=== PATIENT | male | born 1960 | race Caucasian/White ===

== ENCOUNTER 2018-07-02 10:27 | Observation (INO) | payer SELFPAY ==
--- NOTE | 2018-07-02 10:56 | ED ---
Complex/Multi-Sys Presentation - HPI Summary HPI Summary: This patient is a 58 year old M presenting to [facility] with a chief complaint of bouts of dizziness and confusion and frequent urination for the past year with recent fever. Patient suspects his symptoms are due to elevated glucose levels. Reports PMHx of NIDDM that is typically controlled with metformin. However, patient admits to drinking alcohol and a worsening diet while he is visiting the area from [place]. Patient additionally reports chronic health issues including a previous urethra surgery, kidney infections, and lower extremity swelling, and HTN. - History Of Current Complaint Chief Complaint: EDGeneral Time Seen by Provider: 07/02/18 10:46 Hx Obtained From: Patient Onset/Duration: Gradual Onset, Still Present, Worse Since - past few days Timing: Constant Location: Negative Aggravating Factor(s): alcohol, diet change Associated Signs And Symptoms: Positive: Confusion, Dizziness, Dysuria, Fever - Allergies/Home Medications Allergies/Adverse Reactions: Allergies Allergy/AdvReac Type Severity Reaction Status Date / Time No Known Allergies Allergy Verified 07/02/18 10:36 Home Medications: Home Medications Amlodipine Besylate 10 mg PO DAILY 07/02/18 [History Confirmed 07/02/18] Aspirin 81 mg PO DAILY 07/02/18 [History Confirmed 07/02/18] Carvedilol 12.5 mg PO DAILY 07/02/18 [History Confirmed 07/02/18] Doxazosin Mesylate 8 mg PO DAILY 07/02/18 [History Confirmed 07/02/18] Lisinopril 10 mg PO DAILY 07/02/18 [History Confirmed 07/02/18] Metformin HCl 500 mg PO DAILY 07/02/18 [History Confirmed 07/02/18] PMH/Surg Hx/FS Hx/Imm Hx Endocrine/Hematology History: Reports: Hx Diabetes Cardiovascular History: Reports: Hx Hypertension History: Reports: Hx Kidney Infection - Surgical History Surgery Procedure, Year, and Place: "urethra surgery" per patient Infectious Disease History: No Infectious Disease History: Denies: Traveled Outside the [place] in Last 30 Days - Family History Known Family History: Positive: Hypertension - Social History Lives: Alone Alcohol Use: Rare Review of Systems Positive: Fever, Other - dizziness/confusion Positive: frequency All Other Systems Reviewed And Are Negative: Yes Physical Exam - Summary Physical Exam Summary: Appearance: Well-nourished, lying in bed comfortably Skin: Warm, dry, no obvious rash Eyes: sclera anicteric, no conjunctival pallor ENT: mucous membranes moist, pharynx appears normal Neck: Supple, nontender Respiratory: Clear to auscultation, no signs of respiratory distress Cardiovascular: Tachycardic. Normal S1, S2. No murmurs. Normal distal pulses in tibial and radial bilaterally. Abdomen: Soft, nontender, normal active bowel sounds present Musculoskeletal: Strength/ROM Intact, mild pitting edema bilaterally Neurological: A&Ox3, awake and alert, mentation is normal, speech is fluent and appropriate Psychiatric: affect is normal, does not appear anxious or depressed Triage Information Reviewed: Yes Vital Signs On Initial Exam: Initial Vitals Temp Pulse Resp BP Pulse Ox 99.0 F 101 16 123/70 97 07/02/18 10:32 07/02/18 10:32 07/02/18 10:32 07/02/18 10:32 07/02/18 10:32 Vital Signs Reviewed: Yes Diagnostics - Vital Signs Vital Signs Temp Pulse Resp BP Pulse Ox 07/02/18 10:32 99.0 F 101 16 123/70 97 - Laboratory Result Diagrams: 07/02/18 11:03 07/02/18 11:03 Lab Statement: Any lab studies that have been ordered have been reviewed, and results considered in the medical decision making process. - EKG 1128 Cardiac Rate: NL - 94 BPM EKG Rhythm: Sinus Rhythm Summary of EKG Findings: Septal Q waves otherwise normal EKG. NSR at 94 BPM, P waves and T waves are within normal limits, T waves and intervals are normal, no ischemic changes. This is a normal EKG. Complex Multi-Symp Course/Dx Course Of Treatment: 58 year old M presenting to [facility] with a chief complaint of bouts of dizziness and confusion and frequent urination for the past year with recent fever. Upon examination patient is tachycardic with mild swelling of the bilateral lower extremities. Patient is given IV fluids. Bloodwork reveals lactic acid of 2.9. EKG reveals septal Q waves but is otherwise normal. Patient's regular mid day HTN medications are not taken as BP is 96/60. Patient took regularly scheduled metformin. At 12:47 nursing staff informed me of a temperature of 101F. UA indicative of UTI. At 12:54 case discussed with hospitalist Dr. Haddad, who agrees for admission. Results and plan discussed with patient who is agreeable with plan. - Diagnoses Provider Diagnoses: Sepsis, UTI (urinary tract infection) - Physician Notifications Discussed Care Of Patient With: Claudine Haddad - hospitalist Time Discussed With Above Provider: 12:54 Instructed by Provider To: Admit As Inpatient Discharge - Sign-Out/Discharge Documenting (check all that apply): Patient Departure - admit Patient Received Moderate/Deep Sedation with Procedure: No - Discharge Plan Condition: Stable Disposition: ADMITTED TO [facility] - Billing Disposition and Condition Condition: STABLE Disposition: Admitted to [facility] - Attestation Statements Document Initiated by Kee: Yes Documenting Scribe: Scarlet Pak Provider For Whom Scribe is Documenting (Include Credential): Srini Shepherd MD Scribe Attestation: Scarlet Sethi, scribed for Srini Shepherd MD on 07/02/18 at 1954. Scribe Documentation Reviewed: Yes Provider Attestation: The documentation as recorded by the Scarlet quintana accurately reflects the service I personally performed and the decisions made by Srini vieira MD Status of Scribe Document: Viewed
[2018-07-02] MEDS: NS 0.9% 1000 ML** 1,000 ML IV.FLUID IV ONE ×2 (11:10→12:09)
[2018-07-02 11:26] LABS: ABS Lymphocytes 0.2 10^3/ul (1.0-4.8); ABS Monocytes 0.2 10^3/ul (0-0.8); ABS Neutrophils 9.3 10^3/ul (1.5-7.7); Hematocrit 36 % (42-52); Hemoglobin 12.4 g/dL (14.0-18.0); Lymphocyte % 2.2 %; Mean Corpuscular HGB Conc 34 g/dL (31-36); Mean Corpuscular Hemoglobin 29 pg (27-31); Mean Corpuscular Volume 85 fL (80-94); Mean Platelet Volume 9.5 fL (7.4-10.4); Platelet Count 123 10^3/uL (150-450); Red Blood Count 4.25 10^6 /uL (4.18-5.48); Red Cell Distribution Width 14 % (10.5-15); White Blood Count 9.7 10^3/uL (3.5-10.8)
[2018-07-02 11:32] LABS: INR 1.15 (0.82-1.09)
[2018-07-02 11:38] LABS: Albumin 4.2 g/dL (3.2-5.2); Albumin/Globulin Ratio 1.6 (1-3); BUN/Creatinine Ratio 20.4 (8-20); Calcium 9.4 mg/dL (8.6-10.3); EGFR African American 94.7 (>60); EGFR Non-African American 78.3 (>60); Globulin 2.7 g/dL (2-4); Potassium 3.6 mmol/L (3.5-5.0); Total Protein 6.9 g/dL (6.4-8.9)
[2018-07-02 11:40] LABS: Troponin I 0.01 ng/mL (<0.04)
[2018-07-02 12:10] LABS: Urine Appearance Cloudy; Urine Bacteria Absent (Absent); Urine Bilirubin Negative (Negative); Urine Blood 1+ (Negative); Urine Color Amber; Urine Glucose Negative (Negative); Urine Ketones Negative (Negative); Urine Nitrite Negative (Negative); Urine Protein 1+(30 mg/dL) (Negative); Urine Red Blood Cell 2+(6-10/hpf) (Absent); Urine Specific Gravity 1.017 (1.010-1.030); Urine Squamous Epithelial Cell Present (Absent); Urine Urobilinogen Negative (Negative); Urine White Blood Cell 3+(>20/hpf) (Absent)
[2018-07-02] MEDS ORDERED: cefTRIAXone(*) 1 GM in NS 0.9% 50 ML* 50 ML IVPB ONE (12:47)
[2018-07-02] MEDS ORDERED: Acetaminophen TAB* 325 MG PO ONE (12:47)
[2018-07-02] MEDS ORDERED: Ondansetron INJ* 2 MG/ML VIAL IV PRN (13:42)
[2018-07-02] MEDS ORDERED: Ibuprofen TAB* 600 MG PO PRN (13:42)
[2018-07-02] MEDS ORDERED: Acetaminophen TAB* 325 MG PO PRN (13:42)
[2018-07-02] MEDS ORDERED: Ibuprofen TAB* 600 MG ONE (13:45)
[2018-07-02] MEDS: NS 0.9% 1000 ML** 1,000 ML IV SCH ×2 (15:31→23:21)
[2018-07-02] MEDS: Heparin VIAL(*) 5000 UNITS/ML VIAL (FIVE THOUSAND) SUBCUT SCH ×2 (15:32→20:39)
--- NOTE | 2018-07-02 16:14 | HP ---
HISTORY OF PRESENT ILLNESS: DATE OF ADMISSION: 07/02/18. PRIMARY CARE PROVIDER: None. CHIEF COMPLAINT: Dysuria. AIR TUCKER: Shawn Orr, the patient's son. CODES STATUS: Full. HPI is obtained from the patient, who is fair historian. 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 The patient is visiting his son from [place] who graduated about 1 week ago. He has been here for the last week and a half and reports the starting last night he has had worsening urgency, frequency and dysuria. The patient has a congenital anatomic deformity where apparently a urologist when he was a child created a non-urethral orifice from which this patient urinates, which per him is located directly behind the scrotum. Because of this anatomical anomaly patient has recurrent UTIs about 5 to 6 per year and has never been hospitalized for them in the past. The patient resides in [place] and because he is uninsured he currently does not have a urology specialist, although he reports that his primary care provider in [place] did get him an appointment with urologist, which is at the end of the upcoming week. The patient reports that usually with his UTIs he is able to take Tylenol and drinks lots of fluids "and rides it out," although this one he said seemed more severe this morning the patient woke up and had a fever at home to 102, had shaking chills, felt confused, and his son decided to bring him to the emergency room. In the ER vital signs were initially normal, but then patient quickly spiked a temperature to 102, had tachycardia to 95 sinus, sating 100% on room air, respiratory rate in the 20s. Labs were done, which did not show leukocytosis, but did show an elevated lactate to 2.9, creatinine stable at 0.98. A UA was done, which showed 1+ protein, 1+ blood, 3+ leuk esterase, 3+ white blood cell count, and squamous epithelial cells. The hospitalist team was asked to evaluate this patient secondary to meeting sepsis criteria. In the emergency room the patient received 3 L of normal saline as well as ceftriaxone 1 g. 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 PAST SURGICAL HISTORY: CABG in 2017 and a diverting urethral procedure done as a child with non-urethral orifice located behind the scrotum the patient urinates out of. MEDICATIONS: 1. Metformin 500 mg p.o. daily. 2. Lisinopril 10 mg p.o. daily. 3. Doxazosin 8 mg p.o. daily. 4. Carvedilol 12.5 mg p.o. daily. 5. Aspirin 81 mg p.o. daily. 6. Amlodipine 10 mg p.o. daily. ALLERGIES: No known drug allergies. 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 He has a 30-pack year smoking. He stopped 2 years ago. He takes 2 to 3 drinks per month and he has never illicits history. FAMILY HISTORY: His mother from heart disease. His father from colon cancer. REVIEW OF SYSTEMS: Constitutional: Positive for fevers, chills, negative for malaise. HEENT: Negative for vision changes, sore throat, headaches. Cardiovascular: Negative for chest pain, palpation, orthopnea. Respiratory: Negative for shortness of breath, cough, pleuritic chest pain. GI: Negative for nausea, vomiting, diarrhea, abdominal pain. : Positive for dysuria, hematuria, frequency, and urgency. Musculoskeletal: Negative for myalgias, arthralgias or weakness. Skin: Negative for new rashes or lesions. Neurologic : Negative for focal weakness or numbness. Psychiatric: Negative for anxiety , depression. Endocrine: Negative for polyuria, polydipsia. Heme: Negative for bruising, bleeding, or lymphadenopathy. Allergy: Negative for any frequent infections. PHYSICAL EXAMINATION GENERAL APPEARANCE: This is a pleasant well appearing gentleman in no acute distress, obese. VITAL SIGNS: At the time of physical exam, the patient is febrile of 101.4, tachycardic 98, blood pressure 119/68, respiratory rate of 18. HEENT: Pupils are equal and reactive. Extraocular muscles are intact. Sclerae is anicteric. He has moist mucous membranes, poor dentition. NECK: Supple with no cervical or supraclavicular lymphadenopathy. RESPIRATORY: His lungs are clear to auscultation bilaterally. CARDIAC: Regular rate and rhythm with no murmurs, rubs, or gallop. Sternotomy scar is present. ABDOMEN: Belly is obese, distended, nontender, normoactive bowel sounds, soft. He has umbilical hernia that is easily reducible. No costovertebral angle tenderness. MUSCULOSKELETAL: He moves all 4 extremities spontaneously. NEUROLOGIC: His cranial nerves II through XII intact. He has no focal neurological deficits. The patient's A and O x3. GENITOURINARY: The patient's anatomy was not observed during emergency room exam, but will be observed when admitted to hospital bed secondary to the patient's being uncomfortable turning and positioning on stretcher. LABS AND STUDIES: White blood cell count 9.7, hemoglobin 12.4, hematocrit 36, platelets 123. Sodium 134, potassium 3.6, chloride 103, carbon dioxide 22, anion gap 9, BUN 20, creatinine 0.98, glucose 163, lactic acid 2.9. AST 15, ALT 26, alkaline phosphatase is 50, total bilirubin is 1. UA is 1+ protein, 1+ blood, 3+ leuk esterase, 3+ white blood cell, 2+ red blood cells. Microbiology and urine culture is pending. ASSESSMENT AND PLAN: This is a 58-year old male with a past medical history of coronary artery disease status post percutaneous coronary intervention x2 and coronary artery bypass graft in 2017, [id number] diabetes, hypertension, obesity and recurrent urinary tract infection secondary to congenital anatomical deformity who is presenting with sepsis secondary or urogenital source. 1. Sepsis. He has 2/4 systemic inflammatory response syndrome criteria with systemic inflammatory response syndrome we will repeat lactic acid 6 hours per protocol and continue with sepsis bundle including IV fluid bolus for a total of 3- 1/2 L and continued IV fluids 125 cc per hour. 2. Urinary tract infection. The patient's status post ceftriaxone x1, will continue antibiotics. Culture data is spending and treat as accordingly. As far the patient knows he has never had been idt-uyfk-mknrzieet urinary tract infection. 3. Coronary artery disease. Continue patient's home beta gomez aspirin. The patient is currently not on a statin, unclear source why, and his LAWSON inhibitors held in the setting of sepsis and tachycardia with concern for developing hypertension. 4. Non-insulin dependent diabetes. We will continue home metformin, his carb consistent diet. 5. Hypertension. Holding amlodipine and lisinopril we will continue beta gomez and can resume medications as patient stabilizes. 6. DVT prophylaxis. The patient has subcu heparin, he is moderate risk. 7. Code status is full. 8. FEN. The patient is on carb consistent diet. 9. Disposition. The patient is stable for admission under observation status to the medical floor and likely will be safe to discharge as soon as sepsis is cleared. Of note, the patient is uninsured, both in his home state and here, although likely qualifies for Medicaid according to his family and social work consult is generated if patient does remain in house and possibly will need to fill out emergency Medicaid application. TIME SPENT: Thirty minutes was spent in the planning of this admission with over half of that spent directly at the bedside with the patient providing direct patient care. Plan of care is discussed with the patient and his family , and they have no further questions. [id number]/[facility] #: [id number] LEELEE
[2018-07-02] MEDS: Carvedilol TAB* 6.25 MG PO SCH (20:39)
[2018-07-02] MEDS: Doxazosin TAB* 2 MG PO SCH (20:39)
[2018-07-03] MEDS: Heparin VIAL(*) 5000 UNITS/ML VIAL (FIVE THOUSAND) SUBCUT SCH ×3 (05:18→21:04)
[2018-07-03 07:47] LABS: BUN/Creatinine Ratio 15.7 (8-20); Calcium 8.1 mg/dL (8.6-10.3); EGFR African American 114.7 (>60); EGFR Non-African American 94.8 (>60); Potassium 3.6 mmol/L (3.5-5.0)
[2018-07-03] MEDS: metFORMIN* 500 MG TAB PO SCH (08:33)
[2018-07-03] MEDS: Carvedilol TAB* 6.25 MG PO SCH ×2 (08:33→21:05)
[2018-07-03] MEDS: Aspirin EC TAB* 81 MG TAB.EC PO SCH (08:33)
[2018-07-03] MEDS ORDERED: cefTRIAXone(*) 1 GM in NS 0.9% 50 ML* 50 ML IVPB SCH (11:00)
[2018-07-03] MEDS: Cefepime 1 GM in Dextrose(*) 1 GM/50 ML BAG IV SCH ×2 (12:19→13:23)
--- NOTE | 2018-07-03 15:10 | PN ---
Subjective Date of Service: 07/03/18 Interval History: Mr. Tapia is feeling better today. His malaise and weakness from yesterday has resolved. No dysuria or back pain. Denies CP, SOB, N/V. He has a history of frequent UTIs and reports his PCP told him that his last urine culture grew an unusual bacteria that was difficult to treat. He does not know the name of this bacteria, but has taken cipro recently. He feels as though his symptoms never completely resolved and he did not have a long enough course of abx. No concerns from nursing. Family History: Unchanged from Admission Social History: Unchanged from Admission Past Medical History: Unchanged from Admission Objective Active Medications: Acetaminophen (Tylenol Tab*) 650 mg PO Q4H PRN FEVER/PAIN Aspirin (Aspirin Ec Tab*) 81 mg PO DAILY LEON Carvedilol (Coreg Tab*) 6.25 mg PO BID LEON Doxazosin Mesylate (Cardura Tab*) 6 mg PO BEDTIME LEON Heparin Sodium (Porcine) (Heparin Vial(*)) 5,000 units SUBCUT Q8HR LEON Cefepime HCl (Maxipime 1 Gm In Dextrose Duplex (*)) 1 gm in 50 mls @ 100 mls/ hr IV Q12H LEON Ibuprofen (Motrin Tab*) 600 mg PO Q8H PRN PAIN Metformin HCl (Glucophage*) 500 mg PO DAILY LEON Ondansetron HCl (Zofran Inj*) 4 mg IV Q6H PRN NAUSEA Vital Signs - 8 hr 07/03/18 07/03/18 07/03/18 07:27 08:00 11:14 Temperature 97.9 F 98.4 F Pulse Rate 76 70 Respiratory 18 18 Rate Blood Pressure 143/64 107/50 (mmHg) O2 Sat by Pulse 98 98 98 Oximetry Oxygen Devices in Use Now: None Appearance: Middle-aged male sitting in bed in NAD Eyes: No Scleral Icterus Ears/Nose/Mouth/Throat: Mucous Membranes Moist Neck: NL Appearance and Movements; NL JVP, Trachea Midline Respiratory: Symmetrical Chest Expansion and Respiratory Effort, Clear to Auscultation Cardiovascular: NL Sounds; No Murmurs; No JVD, RRR Abdominal: NL Sounds; No Tenderness; No Distention Extremities: No Edema Skin: No Rash or Ulcers Neurological: Alert and Oriented x 3 Lines/Tubes/Other Access: Clean, Dry and Intact Peripheral IV Nutrition: Taking PO's Result Diagrams: 07/02/18 11:03 07/03/18 07:09 Assess/Plan/Problems-Billing Assessment: Mr. Tapia is a 58 yo M with PMH of congenital deformity requiring creation of a non-urethral orifice posterior to the scrotum and subsequent frequent UTIs, CAD s/p CABG, DM2, and HTN; who presented to the ED with c/o dysuria and was found to have sepsis secondary to UTI. - Patient Problems (1) UTI (urinary tract infection) Comment: - Suffered from congenital abnormality requiring creation of a non-urethral orifice posterior to the scrotum, now with recurrent UTIs in recent years - Preliminary urine culture growing Morganella - Will await sensitivity before discharging d/t high liklihood of multi-drug resistant bacteria - Change from ceftriaxone to cefepime (2) Severe sepsis Code(s): A41.9 - SEPSIS, UNSPECIFIED ORGANISM; R65.20 - SEVERE SEPSIS WITHOUT SEPTIC SHOCK Comment: - Met criteria on admission with fever, tachycardia, tachypnea, and lactic >2; source is UTI - Received appropriate fluid bolus and abx on arrival - Plan as above (3) Diabetes mellitus Code(s): E11.9 - TYPE 2 DIABETES MELLITUS WITHOUT COMPLICATIONS Comment: - Good glucose control - Continue metformin (4) CAD (coronary artery disease) Code(s): I25.10 - ATHSCL HEART DISEASE OF [place] CORONARY ARTERY W/O ANG PCTRS Comment: - S/p CABG in 2017 - Continue aspirin, carvedilol (5) Hypertension Code(s): I10 - ESSENTIAL (PRIMARY) HYPERTENSION Comment: - Normotensive, SBP 100-140s - Continue carvedilol; resume lisinopril (6) DVT prophylaxis Code(s): Z29.9 - ENCOUNTER FOR PROPHYLACTIC MEASURES, UNSPECIFIED Comment: - Heparin SQ (7) Full code status Code(s): Z78.9 - OTHER SPECIFIED HEALTH STATUS Comment: Status and Disposition: Observation. Anticipate d/c home when culture sensitivities have resulted. Attending: Cornelio Plasencia
[2018-07-03] MEDS: Doxazosin TAB* 2 MG PO SCH (21:06)
[2018-07-04] MEDS: Cefepime 1 GM in Dextrose(*) 1 GM/50 ML BAG IV SCH (00:02)
[2018-07-04] MEDS: Heparin VIAL(*) 5000 UNITS/ML VIAL (FIVE THOUSAND) SUBCUT SCH (05:50)
[2018-07-04 07:26] VITALS: BP 131/63
[2018-07-04] MEDS: metFORMIN* 500 MG TAB PO SCH (08:06)
[2018-07-04] MEDS: Carvedilol TAB* 6.25 MG PO SCH (08:06)
[2018-07-04] MEDS: Aspirin EC TAB* 81 MG TAB.EC PO SCH (08:06)
[2018-07-04] MEDS ORDERED: Lisinopril TAB* 10 MG PO SCH (09:00)
--- NOTE | 2018-07-04 21:16 | DS ---
DISCHARGE SUMMARY: DATE OF ADMISSION: 07/02/18 DATE OF DISCHARGE: 07/04/18 PRIMARY CARE PROVIDER: Unknown PCP in [place]. ATTENDING PHYSICIAN: Dr. Doug Posey * (dictated by Mera Lee NP). PRIMARY DIAGNOSES: 1. Urinary tract infection with Morganella morganii. 2. Severe sepsis. SECONDARY DIAGNOSES: 1. Diabetes mellitus type 2. 2. Coronary artery disease. 3. Hypertension. STUDIES WHILE IN THE HOSPITAL: EKG on 07/02/18 shows: Normal sinus rhythm with a rate of 94, QTc of 433. No acute changes. HISTORY OF PRESENT ILLNESS AND HOSPITAL COURSE: Mr. 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 Please see the history and physical by Dr. Haddad for complete summary of the events leading up to this hospitalization. In short, the patient has a congenital anatomical deformity of his system and has had a long-term non-urethral orifice posterior to his scrotum. Because of this anatomical anomaly, the patient reports recurrent UTIs. He reports approximately 5 to 6 per year, though reported that he typically does not visit a doctor when he gets these urinary tract infections and does not receive any treatment. He reported 2 days of dysuria and urinary urgency. His son reported 1 day of confusion and weakness. In the emergency room, the patient was noted to have fever up to 101 degrees Fahrenheit, tachycardia, and a lactic acid of 2.9. For those reasons, he met criteria for severe sepsis. He did receive an appropriate fluid bolus and antibiotics and lactic acid thereafter normalized. The patient was admitted by the hospitalist service. He was started on ceftriaxone and a urine culture was sent. The patient reported to me that his primary care provider told him that his last urine culture grew a very unusual bacteria, which was difficult to treat, though the patient did not know the name of this bacteria. Ultimately, the patient improved on ceftriaxone and vital signs had normalized the day following admission. The patient's mental status had also normalized and he reported feeling significantly improved. He was anxious for discharge and wanted to be discharged on 07/03/18, although because of these recurrent UTIs and the high likelihood of a multidrug-resistant organism, I felt as though it was likely to keep the patient in the hospital until results from the urine culture and sensitivities were obtained. The patient was agreeable to this. He has continued to feel well and denies any complaints this morning. On exam, heart has a regular rate and rhythm without murmurs, rubs, or gallops. Lung sounds are clear to auscultation without rhonchi, wheezes, or rubs. There is no CVA tenderness and abdomen is soft, nontender to palpation. There has been no further dysuria or urinary frequency. The patient's urine culture did result with greater than 100,000 colonies of Morganella morganii. Sensitivities were obtained and it was noted to be multidrug resistant. The patient does report to me that he has scheduled an appointment with a urologist back home in [place] and plans to see that urologist in the next couple of weeks due to these recurrent UTIs. Mr. Tapia is stable for discharge today. Most recent vital signs are as follows: Temp 97.8, heart rate 69, respiratory rate 16, oxygen saturation 97% on room air, blood pressure 131/63. DISCHARGE MEDICATIONS: New Medication: 1. Ciprofloxacin 500 mg p.o. b.i.d. x10 days. Continued Medications: 1. Amlodipine 10 mg p.o. daily. 2. Aspirin 81 mg p.o. daily. 3. Carvedilol 12.5 mg p.o. daily. 4. Doxazosin 8 mg p.o. daily. 5. Lisinopril 10 mg p.o. daily. 6. Metformin 500 mg p.o. daily. DISCHARGE PLAN: Mr. Tapia will be discharged home. Activity will be as tolerated. Diet will be diabetic. Medications are noted above. I have prescribed the patient a 10-day course of Cipro. I will note that the patient did not have any health insurance. Because of multiple drug resistances, Cipro is the most appropriate choice as the patient will be able to get this medication for only $4 from [email or web address]. He reports that he has taken Cipro in the past and has tolerated this well without any side effects. Additionally, I felt as though a longer course of antibiotics was necessary due to these recurrent UTIs and obvious susceptibility to infection. He can continue his other usual medications and I have not made any further changes. The patient will need to follow up with his primary care provider in the next 4 to 7 days. I also strongly advised him to follow up with a urologist and he says he has already been set up with a urologist back home. I feel as though this is quite important to follow up on for his urinary and general health. The patient has been instructed to return to the emergency room or nearest hospital for any worsening of symptoms, shortness of breath, lightheadedness, dizziness, chest discomfort, high fevers, chills, night sweats, loss of consciousness, or any other worrisome signs or symptoms. DISCHARGE CONDITION: Stable. DISCHARGE DISPOSITION: Home. This is a summarized report of a complex medical history and hospital stay. For further details, please see the entire medical record. TIME SPENT: Approximately 45 minutes were spent on this discharge. MERA LEE NP [id number]/[facility] #: [id number] LEELEE
== END 2018-07-04 11:00 | disposition home or self-care (01) ==
LOC: ED 10:27 → MED 13:28
PROVIDERS: ADMIT Internal Medicine; ATTEND Internal Medicine
DX: N39.0 Urinary tract infection, site not specified (principal); A41.9 Sepsis, unspecified organism; E11.9 Type 2 diabetes mellitus without complications; I25.10 Atherosclerotic heart disease of native coronary artery without angina pectoris; I10 Essential (primary) hypertension; Z95.5 Presence of coronary angioplasty implant and graft; Z79.82 Long term (current) use of aspirin; E66.9 Obesity, unspecified
CPT/HCPCS: 36415; 80048; 80053; 81003; 81015; 83605; 84484; 85025; 85610; 87040; 87077; 87086; 87186; 93005; 96365; 96372; 96375; 99284; A9270-GY; G0378; J0692; J0696; J1644